=== PATIENT | female | born 1945 | race Two or more races ===

== ENCOUNTER 2018-02-10 06:01 | Day surgery (SDC) | payer MEDICARE, OTHER, SELFPAY ==
--- NOTE | 2018-02-06 10:17 | Pre-Procedure Note/Attestation ---
Pre-Procedure Note/Attestation Complete Prior to Procedure Planned Procedure: left Procedure Narrative: 1. CATARACT EXTRACTION WITH PHACO AND PC IOL IMPLANTATION, LEFT EYE. 2. LIMBAL RELAXING INCISION, LEFT EYE. Indications for Procedure Pre-Operative Diagnosis: 1. CATARACT (AGE RELATED NUCLEAR) , LEFT EYE. 2.ASTIGMATISM , LEFT EYE. Attestation I attest that I discussed the nature of the procedure; its benefits; risks and complications; and alternatives (and the risks and benefits of such alternatives ), prior to the procedure, with the patient (or the patient's legal sales representative cash registers). I attest that, if there was a reasonable possibility of needing a blood transfusion, the patient (or the patient's legal sales representative cash registers) was given the [place] [employer] standardized written summary, pursuant to the [place] Blood Safety Act ([place] Health and Safety Code # 1645, as amended). I attest that I re-evaluated the patient just prior to the surgery and that there has been no change in the patient's H&P, except as documented below: Mario Rojas MD Feb 06, 2018 10:17
[2018-02-10] VITALS (9 sets, daily range): BP systolic 144–166; BP diastolic 71–84
[~2018-02-10] VITALS: Ht 162.6 cm; Wt 68.0 kg
[~2018-02-10 06:01] MED LIST: ASPIR 8181 MG ORAL; DEXILANT60 MG ORAL; DICLOFENAC SODI75 MG ORAL; LOSARTAN POTASS50 MG ORAL; METFORMIN HCL500 M1 ORAL; SIMVASTATIN20 MG ORAL; VASCEPA1 GM PO; VITAMIN D250000 UNI1 ORAL; ZETIA10 MG ORAL; acetaZOLAMIDE 125mg tab ORAL ONE
[2018-02-10] MEDS: Phenylephrine 10% Opth Soln 5ml LEFT EYE SCH ×3 (06:21→06:41)
[2018-02-10] MEDS: Tropicamide 1% Opth 15ml Soln LEFT EYE SCH ×3 (06:21→06:41)
[2018-02-10] MEDS: Vigamox Opth Soln 3ml LEFT EYE SCH ×3 (06:22→06:41)
[2018-02-10] MEDS: Akten 3.5% 1ml Btl LEFT EYE SCH ×3 (06:22→06:41)
[2018-02-10] MEDS: Diclofenac Sod 0.1% Op Soln LEFT EYE SCH ×3 (06:22→06:41)
[2018-02-10] MEDS ORDERED: Lidocaine 1% MPF 10mg/ml 5ml ONE ×2 (06:59→07:30)
[2018-02-10] MEDS ORDERED: EPINEPHrine 1mg/1ml Amp ONE (06:59)
[2018-02-10] MEDS ORDERED: Dexamethasone 4mg/ml vial ONE (07:00)
[2018-02-10] MEDS ORDERED: Carbachol 0.01% Op Soln 1.5ml vial ONE (07:00)
[2018-02-10] MEDS ORDERED: Povidone-Iodine 5% opth solution ONE (07:00)
--- NOTE | 2018-02-10 07:10 | Anethesia Preoperative Eval ---
Anesthesia Pre-op PMH/ROS General Date of Evaluation: Feb 10, 2018 Anesthesiologist: Sundeep ASA Score: ASA 2 Mallampati Score Class I : Soft palate, uvula, fauces, pillars visible Class II: Soft palate, uvula, fauces visible Class III: Soft palate, base of uvula visible Class IV: Only hard plate visible Mallampati Classification: Class II Surgeon: Bob Diagnosis: Left cataract Surgical Procedure: Left cataract extraction with IOL Anesthesia History: none Family History: no anesthesia problems Allergies: Coded Allergies: No Known Allergies (Unverified , 01/23/18) Medications: see eMAR Past Medical History Cardiovascular: Reports: HTN, other - HLd; Denies: CAD, [place], valve dz, arrhythmia Pulmonary: Denies: asthma, COPD, BRY, other Gastrointestinal/Genitourinary: Reports: GERD; Denies: CRI, ESRD, other Neurologic/Psychiatric: Denies: dementia, CVA, depression/anxiety, TIA, other Endocrine: Reports: DM, hypothyroidism; Denies: steroids, other HEENT: Denies: cataract (L), cataract (R), glaucoma, ENTERPRISE (L), ENTERPRISE (R), other Hematology/Immune: Denies: anemia, DVT, bleeding disorder, other Musculoskeletal/Integumentary: Reports: OA; Denies: RA, DJD, DDD, edema, other PSxH Narrative: Bilater TKR, Bilateral bunionectomies, right cataract Anesthesia Pre-op Phys. Exam Physician Exam Last Vital Signs Date Time Temp Pulse Resp B/P (MAP) Pulse Ox O2 Delivery O2 Flow Rate FiO2 02/10/18 06:26 97.3 83 18 160/71 96 Room Air 97.3 Constitutional: NAD Cardiovascular: RRR Respiratory: CTA Airway Exam Mallampati Score: Class II MO: full ROM: full Teeth: intact Anesthesia Pre-op A/P Labs see chart Studies Pre-op Studies: EKG - sr Risk Assessment & Plan Assessment: ASA II Plan: MAC Status Change Before Surgery: No Pre-Antibiotics Drug: N/A TOM QUIÑONEZ M.D. Feb 10, 2018 07:10
[2018-02-10] MEDS ORDERED: LR 1000ml 1,000 ML IVLG SCH (07:14)
[2018-02-10] MEDS ORDERED: DiphenhydrAMINE 50mg/ml Inj IVP PRN (07:15)
[2018-02-10] MEDS ORDERED: Labetalol 5mg/ml 20ml vial IV PRN (07:15)
--- NOTE | 2018-02-10 07:15 | 48 Hour Post Anesthesia Eval ---
Post Anesthesia Evaluation Procedure: Left cataract extraction with IOL Date of Evaluation: Feb 10, 2018 Airway: patent Nausea: No Vomiting: No Pain Intensity: 0 Hydration Status: adequate Cardiopulmonary Status: at baseline Mental Status/LOC: patient returned to baseline Post-Anesthesia Complications: 0 Follow-up care needed: ready to discharge TOM QUIÑONEZ M.D. Feb 10, 2018 07:15
--- NOTE | 2018-02-10 07:15 | Immediate Post-Op Evaluation ---
Immediate Post-Op Evalulation Immediate Post-Op Evalulation Procedure: Left cataract extraction with IOL Date of Evaluation: Feb 10, 2018 Time of Evaluation: 08:41 IV Fluids: 300 Blood Products: 0 Estimated Blood Loss: 0 Urinary Output: 0 Blood Pressure Systolic: 166 Blood Pressure Diastolic: 78 Pulse Rate: 87 Respiratory Rate: 16 O2 Sat by Pulse Oximetry: 97 Temperature (Fahrenheit): 98.2 Pain Score (1-10): 0 Nausea: No Vomiting: No Complications 0 Patient Status: awake, reacts, patent, none Hydration Status: adequate Drug: N/A TOM QUIÑONEZ M.D. Feb 10, 2018 07:15
[2018-02-10] MEDS ORDERED: fentaNYL 100 mcg/2 mL IV ONE (07:17)
[2018-02-10] MEDS ORDERED: Propofol 200mg/20ml IV ONE (07:18)
[2018-02-10] MEDS ORDERED: DiphenhydrAMINE 50mg/ml Inj ONE (07:18)
[2018-02-10] MEDS ORDERED: Midazolam 2mg/2ml Inj ONE (07:18)
[2018-02-10] MEDS ORDERED: Sterile Water Irrig 1000ml IRRIG ONE (07:30)
[2018-02-10] MEDS ORDERED: NS Irrig 1000ml ONE (07:30)
[2018-02-10] MEDS ORDERED: LR 1000ml ONE ×2 (07:30→08:45)
[2018-02-10] MEDS ORDERED: Flumazenil 0.1mg/ml 5ml Inj IV ONE (07:58)
[2018-02-10] MEDS ORDERED: Sodium Hyaluronate 10 mg/ml 0.85ml ONE (08:22)
--- NOTE | 2018-02-10 08:40 | Discharge Summary ---
Discharge Summary Discharge Summary Discharge Summary DATE OF ADMISSION: 02/10/2018 DATE OF DISCHARGE: 02/10/2018 REASON FOR HOSPITALIZATION: cataract, left eye 2- Astigmatism, left eye SURGERY PERFORMED 1- Cataract extraction, left eye 2- LRI: CONDITION IN THE HOSPITAL:The patient tolerated the surgery without complications. DISCHARGE CONDITION: The patient was stable at discharge. DISCHARGE MEDICATIONS: 1. Vigamox eye drops one drop q.i.d, OS 2. Prednisolone one drop q.i.d, OS 3. Prolensa 1 drop qd, left eye POSTOPERATIVE ORDERS: The patient has to rest at home. No bending, No lifting, No watching Television tonight. POSTOPERATIVE FOLLOW UP: The patient will be followed in my office tomorrow morning at 7 o'clock. Mario Rojas MD Feb 10, 2018 08:40
--- NOTE | 2018-02-10 08:43 | Brief Operative Note ---
Immediate Post Operative Note Operative Note Chief Complaint: Blurry vision , difficulty driving and reading, left eye Pre-op Diagnosis: 1. CATARACT (AGE RELATED NUCLEAR) , LEFT EYE. 2.ASTIGMATISM , LEFT EYE. Procedure: 1- Catarat extraction with phaco and PC IOL implantation, leftv eye 2- Limbal relaxing incision ( LRI ), left eye Post-op Diagnosis: same as pre-op Surgeon: Monik Camacho md [place]: nONE Additional Surgeons: nONE Anesthesiologist: dR. Godwin Anesthesia: MAC Specimen: none Complications: none Condition: stable Fluids: 500ML Estimated Blood Loss: none Drains: none Implant(s) used?: Yes Monik Camacho MD Feb 10, 2018 08:43
--- NOTE | 2018-02-10 21:00 | Operative Note - Dictated ---
DATE OF OPERATION: 02/10/2018 FACILITY: [facility]. SURGEON: Mario Rojas M.D. POLE LIFT OPERATOR: None. ANESTHESIOLOGIST: Dr. Urbano. ANESTHESIA: Monitored anesthesia care (MAC). PREOPERATIVE DIAGNOSES: 1. Cataract, left eye. 2. Astigmatism, left eye. 3. Very shallow anterior chamber and high hyperopia. POSTOPERATIVE DIAGNOSES: 1. Cataract, left eye. 2. Astigmatism, left eye. 3. Very shallow anterior chamber and high hyperopia. SURGERY PERFORMED: 1. Cataract extraction with phacoemulsification and posterior chamber intraocular lens implantation in the left eye. 2. Limbal relaxing incision (LRI), left eye. INDICATION FOR SURGERY: The patient is a 72-year-old lady with history of diabetes mellitus type 2, hypothyroidism, osteoarthritis, nodular goiter, and hypercholesterolemia. She has history of some surgeries including bilateral bunionectomy and bilateral total knee replacement. Family history of hypertension and cardiovascular disease. The patient is not drinker and not a smoker and the patient is not allergic to any medications. She is taking medications including Dexilant, simvastatin, losartan, aspirin, vitamin D3, Zetia, and diclofenac. She has had cataract surgery in the right eye two weeks ago and she is very happy with the result. Now, she is complaining of blurred vision in the left eye. On examination of the left eye, the cornea is clear. Anterior chamber is clean and quiet, but is very very shallow. The patient has 9 diopter of hyperopia in this eye and is legally blind without glasses. Pupillary reflex is normal. There is no RAPD. There is 3+ nuclear sclerosis and 2+ cortical cataract in the left eye. The funduscopy showed normal macula and normal optic disc and periphery retina is flat. To improve her vision in the left eye, the cataract has to be removed and posterior chamber intraocular lens has to be implanted and also limbal relaxing incision for treatment of astigmatism has to be done. INFORMED CONSENT: The nature of the surgery, risks, benefits, alternatives, and potential complications were all explained in detail to the patient. The potential complications including, but not limited to bleeding, infection, posterior capsular rupture, lens subluxation, flat anterior chamber, iris prolapse, uveitis, corneal edema, macular edema, endophthalmitis, retinal detachment, loss of vision, and even loss of the eye were all explained in detail to the patient. The patient voiced understanding and accepted all the complications. The alternatives including accommodating lenses, multifocal lenses, , conventional cataract surgery with limbal relaxing incision (LRI) for treatment of astigmatism were all explained in detail to the patient. The patient voiced understanding and accepted all the complications. The patient elected to have cataract surgery with insertion of multifocal lens and treatment of astigmatism with LRI. Then, she signed the consent form, which is in the chart. DESCRIPTION OF SURGERY AND FINDINGS: Following that, the patient was taken to the operative room in stable condition. Lidocaine gel Akten 3.5% were applied to the conjunctiva of the left eye. IV sedation was given by the anesthesiologist, Dr. Urbano. After adequate anesthesia and sedation had been achieved, the left eye was prepped and draped in the sterile fashion for intraocular surgery. Following that, a speculum was placed in the left eye. Before the patient was taken to the operation room, the cornea was marked at 180 and 90 meridian. In the operation room, using a corneal marker and marking pen, the steep meridian of the cornea was marked. Following that, using a sukhjinder knife with 600 micron blade, two parallel incisions were placed on the steep meridian of the cornea to treat the astigmatism. Following that, using a Super Sharp knife, a clear corneal side port was created. A 1% lidocaine without preservative (MPF) was injected into the anterior chamber. Viscoelastic agent, Healon was injected into the anterior chamber. Following that, using a 2.8 mm keratome, a clear corneal keratotomy was performed on the temporal side of the cornea. Viscoelastic agent, Healon was injected into the anterior chamber again. Following that, VisionBlue was injected under the viscoelastic agent to stain the anterior capsule of the crystalline lens. Following that, again fresh clear viscoelastic agent, Healon was injected into the anterior chamber. Under the viscoelastic agent, an anterior capsulotomy was performed in the fashion of capsulorrhexis beautifully. Following that, the whole viscoelastic agent was removed from the anterior chamber. Following that, with balanced salt solution, hydrodissection and hydrodelineation was performed and the nucleus was freed. Following that, again clear fresh sterile viscoelastic agent, Healon was injected into the anterior chamber to protect the endothelium of the cornea. Following that, using the phacoemulsification machine in the fashion of horizontal chop, the nucleus was removed in toto. Following that, using irrigation-aspiration unit, the cortical material was removed from the capsular bag and the capsular bag was polished. Following that, the capsular bag was filled with viscoelastic agent, Healon. Following that, +29 diopter ZLB00 foldable PCIOL with serial number #[id number] was injected into the capsular bag. Using a Sinskey hook, the lens was manipulated and put in the proper position. Following that, the viscoelastic agent was removed from the anterior and posterior part of the lens. The anterior chamber was filled with balanced salt solution and the wound was hydrated with balanced salt solution. Following that, the wound was checked for leakage, there was no leakage. Vigamox eyedrops were applied to the conjunctiva of the left eye. The patient tolerated the surgery without complications. At the end of the surgery, the eye was patched with a clear sterile fenestrated shield. Following that, the patient was transferred to the recovery room. In the recovery room, 125 mg of Diamox was given by mouth stat. Postoperative orders and directions were given to the patient. The patient will be discharged home upon stabilization. The patient will be followed in my office tomorrow morning at a.m. Mario Rojas M.D. DR: BRISEIDA JOB#: [id number] CC:
== END 2018-02-10 11:00 | disposition home or self-care (01) ==
LOC: SUR 06:01
DX: H25.12 Age-related nuclear cataract, left eye (principal); H25.012 Cortical age-related cataract, left eye; H52.202 Unspecified astigmatism, left eye; H52.02 Hypermetropia, left eye; I10 Essential (primary) hypertension; E11.9 Type 2 diabetes mellitus without complications; K21.9 Gastro-esophageal reflux disease without esophagitis; E78.5 Hyperlipidemia, unspecified; E03.9 Hypothyroidism, unspecified; Z96.653 Presence of artificial knee joint, bilateral
CPT/HCPCS: 65772; 66984; 82962; J0171; J1100; J1200; J2250; J2704; J3010; J7120; V2632; 94003; 94150